=== PATIENT | male | born 1975 | race Caucasian/White ===

== ENCOUNTER 2016-06-27 08:50 | Emergency (ER) | payer MEDICARE, MEDICAID ==
[2016-06-27 09:04] VITALS: TEMP 98.5; BMI 24.0
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
[2016-06-27 10:13] VITALS: BP 113/76; PULSE 74
== END 2016-06-27 10:21 | disposition home or self-care (01) ==
LOC: ED 08:50
DX: R56.9 Unspecified convulsions (principal)
CPT/HCPCS: 36415; 80164; 99282; A9270; J3490

== ENCOUNTER 2016-07-16 03:10 | Emergency (ER) | payer MEDICARE, MEDICAID ==
[2016-07-16 03:16] VITALS: BMI 24.0
[2016-07-16] MEDS ORDERED: OXYCODONE HCL 5 MG TABLET PO ONE ×2 (03:23→04:32)
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
[2016-07-16 03:38] VITALS: TEMP 97.3
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
[2016-07-16 04:37] VITALS: BP 123/84; PULSE 100
== END 2016-07-16 04:36 | disposition home or self-care (01) ==
LOC: ED 03:10
DX: S02.651A Fracture of angle of right mandible, initial encounter for closed fracture (principal); Y04.2XXA Assault by strike against or bumped into by another person, initial encounter
CPT/HCPCS: 70450; 70486; 99283; A9270; J3490